=== PATIENT | male | born 1940 | race Caucasian/White ===

== ENCOUNTER 2016-05-22 21:59 | Observation (INO) | payer MEDICARE ==
[~2016-05-22] VITALS: Ht 185.4 cm; Wt 98.0 kg
[2016-05-22 22:05] VITALS: BP 194/85; PULSE 60; RESP 18; TEMP 98; O2SAT 99
[2016-05-22] MEDS ORDERED: ASPI81CH PO (22:13)
[2016-05-22] MEDS ORDERED: METO25TA3 PO (22:13)
[2016-05-22] MEDS ORDERED: LISI-519 PO (22:13)
[2016-05-22] MEDS ORDERED: NITR0.4S SL (22:13)
[2016-05-22] MEDS ORDERED: ATOR1TAB18 PO (22:13)
[2016-05-22] MEDS ORDERED: BRIL90TA PO (22:13)
--- NOTE | 2016-05-22 22:32 | PD ---
HPI Chief Complaint: Pain: Acute or Chronic Time Seen by Provider: 22:07 Travel History International Travel<30 days: No Contact w/Intl Traveler<30days: No Traveled to known affect area: No History of Present Illness HPI The patient is a 76 year old male who presents to the [facility] emergency department with a history of multiple systemic complaints that have been escalating over the last 2-3 weeks. The patient reports that over the last month he's had intermittent problems with constipation which is a new concern for him. He reports he did last moved his bowels earlier today in small amount. The patient additionally reports that he's intermittently had weakness in his legs with standing, lightheaded sensation with near syncope today, and a buzzing in his ears associated with right anterior neck pain. The patient reports that he's had a tingling sensation in the left arm, however no chest pressure today. 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 He reports he was diagnosed in the summer with a right bundle branch block and underwent a stress test and echo that was reportedly unremarkable, however in March when he began to have chest pain he was offered a cardiac catheterization. He elected to do it and was noted to have 3 areas of blockage that were significant and 3 stents were placed. He reports that since then he is on a baby aspirin daily, Brilinta. The patient reports having intermittent nausea without vomiting. The patient denies having any diarrhea. He denies having any abdominal pain other than the sensation of intermittent bloating related to his constipation. The patient reports having some night. The patient denies any recent fevers, cough, congestion, chest pain , shortness of breath, urinary symptoms, or neurologic symptoms. [facility] Past Medical History Narrative Medical The patient's past medical history is significant for tinnitus that he reports having for many years, history of hyperlipidemia, hypertension, arthritis, coronary artery disease status post 3 prior stents being placed, pulmonary embolism after hip replacement. The patient is visiting from [place]. High Cholesterol: Yes Hypertension: Yes Respiratory: Yes (PE) Tetanus Vaccination: > 5 Years Influenza Vaccination: Yes Past Surgical History Narrative Surgical The patient's past surgical history is significant for a hip replacement, cardiac catheterization with 3 stents placed in March 2016. Cardiac Surgery: Yes (STENTS X3) Social History Alcohol Use: Yes (DAILY) Tobacco Use: Yes Substance Use: No Allergies-Medications (Allergen,Severity, Reaction): Coded Allergies: No Known Allergies (Unverified , 05/22/16) Reported Meds & Prescriptions Reported Meds & Active Scripts Active Reported Brilinta (Ticagrelor) 90 Mg Tab 90 Mg PO BID Nitrostat SL (Nitroglycerin) 0.4 Mg Subl 0.4 Mg SL DIRECTED PRN 1 tablet under the tongue as needed for chest pain. Repeat every 5 minutes for a total of 3 DOSES or call 911 if NO relief. Metoprolol Tartrate 25 Mg Tab 25 Mg PO BID Lisinopril 5 Mg Tab 5 Mg PO DAILY Atorvastatin (Atorvastatin Calcium) 80 Mg Tab 80 Mg PO HS Aspirin 81 Mg Chew 81 Mg PO DAILY Review of Systems Except as stated in HPI: all other systems reviewed are Neg General / Constitutional: No: Fever Eyes: No: Visual changes HENT: Positive: Headaches, Lightheadedness, No: Rhinorrhea, Congestion, Neck Pain Cardiovascular: No: Chest Pain or Discomfort Respiratory: No: Cough, Shortness of Breath Gastrointestinal: Positive: Nausea, Constipation, Changes in Bowel Habits, No : Vomiting, Diarrhea, Abdominal Pain, Indigestion, Dysphagia, Loss of Appetite Genitourinary: No: Urgency, Frequency, Dysuria, Flank Pain Musculoskeletal: Positive: Myalgias, Arthralgias, No: Pain Skin: No Rash Neurologic: No: Weakness, Focal Abnormalities, Coordination Problem, Change in Mentation, Slurred Speech, Sensory Disturbance Psychiatric: No: Depression Endocrine: No: Polydipsia Hematologic/Lymphatic: No: Easy Bruising Physical Exam Narrative General: The patient is a well-developed well-nourished male. Head and Neck exam: Head is normocephalic atraumatic. Eyes: Pupils are equal round and reactive to light. Nose: Midline septum with pink mucous membranes Mouth: Dentition unremarkable. Moist mucus membranes. Posterior oropharynx is not erythematous. No tonsillar hypertrophy. Uvula midline. Airway patent. Neck: No palpable lymphadenopathy. No nuchal rigidity. No thyromegaly. Cardiovascular: Regular rate and rhythm without murmurs, gallops, or rubs. Lungs: Clear to auscultation bilaterally. No wheezes, rhonchi, or rales. Abdomen: Soft, without tenderness to palpation in all 4 quadrants of the abdomen. No guarding, rebound, or rigidity. Normal bowel sounds are audible. Extremities: No clubbing, cyanosis, or edema. 2+ pulses in all 4 extremities. No calf tenderness on palpation. Negative Homans sign, no palpable cords. Back: No spinous process tenderness to palpation. No costovertebral angle tenderness to palpation. Neurologic Exam: Grossly nonfocal. Skin Exam: No rash noted. Intact skin that is warm and dry. Data Data Last Documented VS Vital Signs Date Time Temp Pulse Resp B/P Pulse Ox O2 Delivery O2 Flow Rate FiO2 05/22/16 23:00 70 16 148/70 97 Room Air 05/22/16 22:[address] Cerv Spine W/O Contrast (05/22/16 22:10) Electrocardiogram (05/22/16 22:10) Complete Blood Count With Diff (05/22/16 22:10) Comprehensive Metabolic Panel (05/22/16 22:10) Creatine Kinase (Cpk) (05/22/16 22:10) Ckmb (Isoenzyme) Profile (05/22/16 22:10) Troponin I (05/22/16 22:10) B-Type Natriuretic Peptide (05/22/16 22:10) Lipase (05/22/16 22:10) Westergren Sedimentation Rate (05/22/16 22:10) Magnesium (Mg) (05/22/16 22:10) Chest, Single Ap (05/22/16 22:10) Iv Access Insert/Monitor (05/22/16 22:10) Ecg Monitoring (05/22/16 22:10) Oximetry (05/22/16 22:10) D-Dimer (05/22/16 22:25) Ct Brain W/O Iv Contrast(Rout) (05/22/16 22:25) CKMB (05/22/16 22:20) CKMB% (05/22/16 22:20) Ct Pulmonary Angiogram (05/22/16 23:32) Aspirin Chew (Aspirin Chew) (05/22/16 23:45) Nitroglycerin 2% Oint (Nitroglycerin 2% (05/22/16 23:45) Admit Order (Ed Use Only) (05/23/16 00:32) Labs Laboratory Tests Test 05/22/16 22:20 White Blood Count 5.6 TH/MM3 Red Blood Count 4.38 MIL/MM3 Hemoglobin 13.0 GM/DL Hematocrit 38.2 % Mean Corpuscular Volume 87.2 FL Mean Corpuscular Hemoglobin 29.7 PG Mean Corpuscular Hemoglobin 34.1 % Concent Red Cell Distribution Width 15.1 % Platelet Count 208 TH/MM3 Mean Platelet Volume 7.7 FL Neutrophils (%) (Auto) 61.8 % Lymphocytes (%) (Auto) 23.8 % Monocytes (%) (Auto) 12.0 % Eosinophils (%) (Auto) 1.9 % Basophils (%) (Auto) 0.5 % Neutrophils # (Auto) 3.4 TH/MM3 Lymphocytes # (Auto) 1.3 TH/MM3 Monocytes # (Auto) 0.7 TH/MM3 Eosinophils # (Auto) 0.1 TH/MM3 Basophils # (Auto) 0.0 TH/MM3 CBC Comment DIFF FINAL Differential Comment Erythrocyte Sedimentation Rate 2 mm/hr D-Dimer Quantitative (PE/DVT) 0.80 MG/L FEU Sodium Level 143 MEQ/L Potassium Level 4.5 MEQ/L Chloride Level 109 MEQ/L Carbon Dioxide Level 27.8 MEQ/L Anion Gap 6 MEQ/L Blood Urea Nitrogen 17 MG/DL Creatinine 0.87 MG/DL Estimat Glomerular Filtration 86 ML/MIN Rate Random Glucose 87 MG/DL Calcium Level 9.1 MG/DL Magnesium Level 2.1 MG/DL Total Bilirubin 0.5 MG/DL Aspartate Amino Transf 37 U/L (AST/SGOT) Alanine Aminotransferase 33 U/L (ALT/SGPT) Alkaline Phosphatase 76 U/L Total Creatine Kinase 228 U/L Creatine Kinase MB 3.3 NG/ML Troponin I LESS THAN 0.02 NG/ML B-Type Natriuretic Peptide 57 PG/ML Total Protein 6.6 GM/DL Albumin 3.9 GM/DL Lipase 116 U/L MDM Medical Decision Making Medical Screen Exam Complete: Yes Emergency Medical Condition: Yes Medical Record Reviewed: Yes Interpretation(s) Last Impressions Head CT 05/22/[id number] Signed Impressions: Service Date/Time: Sunday, May 22, 2016 22:43 - CONCLUSION: Normal examination for a patient of this age. Isaías Lombardo MD Chest X-Ray [id number] Signed Impressions: Service Date/Time: Sunday, May 22, 2016 22:29 - CONCLUSION: No acute disease. Mikey Reyes MD Cervical Spine CT 05/22/16 [id number] Signed Impressions: Service Date/Time: Sunday, May 22, 2016 22:43 - CONCLUSION: 1. No acute findings. Moderate to severe degenerative disc disease and facet arthropathy. Moderate to severe bilateral neural foraminal stenosis at C3-4-5-6-7, worse on the left side. Isaías Lombardo MD Differential Diagnosis Acute coronary syndrome, versus pulmonary embolism, versus cardiac arrhythmia, versus vasovagal nearsyncope, versus medication side effect, versus orthostasis , versus cervical radiculopathy, versus intracranial abnormality Narrative Course During the course of the patients emergency department visit, the patients history, examination, and differential diagnosis were reviewed with the patient. The patient had IV access obtained and blood work sent for analysis. The patient was placed on a compliance monitor with oximetry and blood pressure monitoring. An EKG was done on arrival. The patient's EKG reveals a sinus rhythm borderline first-degree AV block, right bundle branch block is noted, no acute ST segment elevation is noted. T waves are inverted in V1, V2. The patient was provided aspirin 162 mg by mouth 1. Nitroglycerin 1 inch the chest wall The patients laboratory studies were reviewed and remarkable for a CBC that was unremarkable except for a monocytosis, CMP that was unremarkable, initial set of cardiac enzymes are negative. Sedimentation rate was within normal limits. D-dimer was elevated at 0.8, therefore CTA to rule out PE was ordered. Radiology studies were reviewed and remarkable for a CT scan of the head that showed no acute abnormality. CT scan of the cervical spine showed degenerative changes and areas of neural foraminal narrowing which could be contributing to a cervical radiculopathy, CTA to rule out PE was negative for pulmonary embolism , erythematous changes were noted, chest x-ray showed no acute abnormality. The most concerning features of the patient's recent systemic complaints are the fact that they could be related to an acute coronary process given his recent history of having 3 stents placed, therefore the patient will be admitted to the hospital for evaluation and treatment, rule out serial cardiac enzyme protocol. The patients results were discussed with the patient, including the plan of care. I explained that further testing and/ or monitoring is indicated based on the patients history, examination, and/ or laboratory findings. Therefore, I recommended admission for additional evaluation. The patient expressed understanding and was agreeable with this plan. The patient was admitted to the hospital in stable condition and sent to a bed under the care of the chest pain center for rule out serial cardiac enzyme protocol. Diagnosis Primary Impression: Chest pain, rule out acute myocardial infarction Additional Impressions: Hx of coronary artery disease Near syncope Admitting Information Admitting Physician Requests: Observation Paloma Eaton MD May 22, 2016 22:32
--- NOTE | 2016-05-22 22:37 | RADRPT ---
EXAM DATE/TIME: 05/22/2016 22:29 [facility] COMPARISON: No previous studies available for comparison. INDICATIONS : Chest pain MEDICAL HISTORY : None. SURGICAL HISTORY : Cardiac stents ENCOUNTER: Initial ACUITY: 2 weeks PAIN SCORE: 0/10 LOCATION: Bilateral chest FINDINGS: A single view of the chest demonstrates the lungs to be symmetrically aerated without evidence of mas s, infiltrate or effusion. The cardiomediastinal contours are unremarkable. Osseous structures are intact. CONCLUSION: No acute disease. Mikey Reyes MD on May 22, 2016 at 22:35 Board Certified Radiologist. This report was verified electronically.
[2016-05-22 23:00] VITALS: BP 148/70; PULSE 70; RESP 16; O2SAT 97
[2016-05-22 23:01] LABS: ALKALINE PHOSPHATASE 76 U/L (45-117); ALT (GPT) 33 U/L (12-78); ANION GAP 6 MEQ/L (5-15); AST (GOT) 37 U/L (15-37); BICARBONATE 27.8 MEQ/L (21.0-32.0); BLOOD UREA NITROGEN 17 MG/DL (7-18); CHLORIDE 109 MEQ/L (98-107); CREATINE KINASE 228 U/L (39-308); GLOMERULAR FILTRATION RATE 86 ML/MIN (>89); MAGNESIUM 2.1 MG/DL (1.5-2.5); SODIUM (NA) 143 MEQ/L (136-145); TOTAL BILIRUBIN ADULT 0.5 MG/DL (0.2-1.0)
[2016-05-22 23:02] LABS: POTASSIUM 4.5 MEQ/L (3.5-5.1)
--- NOTE | 2016-05-22 23:07 | RADRPT ---
EXAM DATE/TIME: 05/22/2016 22:43 [place] Corrected on: May 27, 2016; added missing exam form information [facility] COMPARISON: No previous studies available for comparison. INDICATIONS : Cephalgia. RADIATION DOSE: 56.35 CTDIvol (mGy) MEDICAL HISTORY : Cardiovascular disease. Hypertension. PE SURGICAL HISTORY : left hip replacement. ENCOUNTER: Initial ACUITY: 1 day PAIN SCALE: 6/10 LOCATION: cranial TECHNIQUE: Multiple contiguous axial images were obtained of the head. Using automated exposure control and adj ustment of the mA and/or kV according to patient size, radiation dose was kept as low as reasonably a chievable to obtain optimal diagnostic quality images. FINDINGS: CEREBRUM: The ventricles are normal for age. No evidence of midline shift, mass lesion, hemorrhage or acute in farction. No extra-axial fluid collections are seen. POSTERIOR FOSSA: The cerebellum and brainstem are intact. The 4th ventricle is midline. The cerebellopontine angle i s unremarkable. EXTRACRANIAL: The visualized portion of the orbits is intact. SKULL: The calvaria is intact. No evidence of skull fracture. CONCLUSION: Normal examination for a patient of this age. Isaías Lombardo MD on May 22, 2016 at 22:59 Board Certified Radiologist. This report was verified electronically. DR Grill Prep Cook on May 27, 2016 at 8:51 Board Certified Radiologist. This report was verified electronically.
--- NOTE | 2016-05-22 23:12 | RADRPT ---
EXAM DATE/TIME: 05/22/2016 22:43 [facility] COMPARISON: No previous studies available for comparison. INDICATIONS : Neck pain; possible radiculopathy. RADIATION DOSE: 35.08 CTDIvol (mGy) MEDICAL HISTORY : Cardiovascular disease. Hypertension. PE SURGICAL HISTORY : Left hip replacement ENCOUNTER: Initial ACUITY: 1 day PAIN SCALE: 6/10 LOCATION: neck TECHNIQUE: Volumetric scanning of the cervical spine was performed. Multiplanar reconstructions in the sagittal, coronal and oblique axial planes were performed. Using automated exposure control and adjustment o f the mA and/or kV according to patient size, radiation dose was kept as low as reasonably achievable to obtain optimal diagnostic quality images. FINDINGS: No acute fracture or spondylolisthesis. Moderate to severe degenerative disc disease in lower cervica l spine with mild AP canal stenosis at C5-6-7. Multilevel neural foraminal encroachment. No preverteb ral soft tissue swelling. CONCLUSION: 1. No acute findings. Moderate to severe degenerative disc disease and facet arthropathy. Moderate to severe bilateral neural foraminal stenosis at C3-4-5-6-7, worse on the left side. Isaías Lombardo MD on May 22, 2016 at 23:06 Board Certified Radiologist. This report was verified electronically.
[2016-05-22 23:14] LABS: CKMB 3.3 NG/ML (0.5-3.6)
[2016-05-22 23:43] LABS: AUTOMATED NEUTROPHIL # 3.4 TH/MM3 (1.8-7.7); BASOPHIL % 0.5 % (0.0-2.0); EOSINOPHIL # 0.1 TH/MM3 (0-0.4); EOSINOPHIL % 1.9 % (0.0-4.0); HEMATOCRIT 38.2 % (39.0-51.0); HEMO FLAGS DIFF FINAL; LYMPH % 23.8 % (9.0-44.0); LYMPHOCYTE # 1.3 TH/MM3 (1.0-4.8); MEAN CELL VOLUME 87.2 FL (80.0-100.0); MEAN CORPUSCULAR HEMOGLOBIN 29.7 PG (27.0-34.0); MEAN CORPUSCULAR HGB CONC 34.1 % (32.0-36.0); NEUT % 61.8 % (16.0-70.0); PLATELET COUNT 208 TH/MM3 (150-450); RED BLOOD COUNT 4.38 MIL/MM3 (4.50-5.90); RED CELL DISTRIBUTION WIDTH 15.1 % (11.6-17.2); WHITE BLOOD COUNT 5.6 TH/MM3 (4.0-11.0)
[2016-05-22] MEDS ORDERED: ASPIRIN 81 MG CHEW TAB CHEW ONE (23:45)
[2016-05-22] MEDS ORDERED: NITROGLYCERIN 2% OINT 1 GM PACKET TOPICAL ONE (23:45)
[2016-05-23] VITALS (8 sets, daily range): BP systolic 120–185; BP diastolic 59–89; PULSE 56–87; RESP 18; TEMP 98.8; O2SAT 96–99
[2016-05-23] MEDS ORDERED: IOHEXOL 350 MG/ML 10 ML VIAL (for RAD DIAG) IV ONE (00:42)
--- NOTE | 2016-05-23 01:14 | RADRPT ---
EXAM DATE/TIME: 05/23/2016 00:39 [facility] COMPARISON: No previous studies available for comparison. INDICATIONS : Shortness of breath; rule out pulmonary embolus. IV CONTRAST: 80 cc Omnipaque 350 (iohexol) IV RADIATION DOSE: 23.44 CTDIvol (mGy) MEDICAL HISTORY : Hypertension. SURGICAL HISTORY : Cardiac stents. ENCOUNTER: Initial ACUITY: 1 day PAIN SCALE: 2/10 LOCATION: chest TECHNIQUE: Volumetric scanning of the chest was performed using a pulmonary embolism protocol MIP images were re constructed. Using automated exposure control and adjustment of the mA and/or kV according to patien t size, radiation dose was kept as low as reasonably achievable to obtain optimal diagnostic quality images. FINDINGS: No filling defects are seen to suggest pulmonary embolic disease. There are coronary calcifications a nd a stent in the LAD. No pleural or pericardial effusion. No focal lung consolidation. Minimal dependent atelectasis in the lungs. Mild emphysema. CONCLUSION: 1. Negative for pulmonary embolus. 2. Moderate coronary calcifications status post stent placement within the LAD. 3. Mild emphysema. Isaías Lombardo MD on May 23, 2016 at 1:07 Board Certified Radiologist. This report was verified electronically.
[2016-05-23] MEDS ORDERED: SODIUM CHLORIDE 0.9% FLUSH 5 ML FLUSH IVF PRN (01:45)
[2016-05-23] MEDS ORDERED: ACETAMINOPHEN/HYDROcodone 325 MG/7.5 MG TAB PO PRN (01:45)
[2016-05-23] MEDS ORDERED: ONDANSETRON HCL 4 MG/2 ML VIAL IV PRN (01:45)
[2016-05-23 02:44] LABS: CREATINE KINASE 163 U/L (39-308)
[2016-05-23 05:10] LABS: CREATINE KINASE 139 U/L (39-308)
[2016-05-23 05:22] LABS: CKMB 2.5 NG/ML (0.5-3.6)
--- NOTE | 2016-05-23 07:56 | HHI.DCPOC ---
Discharge Care Plan Diagnosis: (1) Cervical radiculopathy (2) Hypertension (3) Hyperlipidemia (4) Hx of coronary artery disease (5) H/O heart artery stent Goals to Promote Your Health OVER THE COUNTER METAMUCIL. 325MG ASPIRIN 2-3 DAYS A DAY FOE NECK PAIN, DISCUSS TAKING MOBIC WITH YOUR NUCLEAR FUEL ENRICHMENT TECHNICIAN. * To prevent worsening of your condition and complications * To maintain your health at the optimal level Directions to Meet Your Goals Take your medications as prescribed Follow your dietary instruction Follow activity as directed Keep your appointments as scheduled Take your immunizations and boosters as scheduled If your symptoms worsen call your PCP, if no PCP go to Urgent Care Center or Emergency Room Smoking is Dangerous to Your Health. Avoid second hand smoke Call the 24-hour hour crisis hotline for domestic abuse at [facility] May 23, 2016 07:56
--- NOTE | 2016-05-23 08:14 | HHI.HP ---
HPI Primary Care Physician Non-Staff Chief Complaint Neck and arm pain History of Present Illness This is a 76-year-old male with history of CAD status post stenting in February 2016, hypertension, and hyperlipidemia that presents complaining of chronic neck pain however over last 3 weeks he has had neck pain with a burning discomfort radiating down his arms more so on the left side. The discomfort in his arm has been essentially constant for the last 2 weeks. He's not really nothing to worsen the discomfort in his arm but states the neck discomfort is worsened with movement. He also complains of discomfort along both sides of his neck. Denies chest discomfort. 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 Denies shortness breath, nausea, or diaphoresis. Patient had 3 stents in February. States had a normal stress test and 2-D echo in the summer of last year. These were done in [place]. He is here in [place] for one month. Review of Systems General: Patient denies fevers, chills recent, and recent travel HEENT: Patient denies headache, sore throat, difficulty swallowing. Cardiovascular: Has the chest discomfort as mentioned above. Denies sensation of heart beating rapidly or irregularly. No syncope. Respiratory: Denies shortness of breath or inspirational chest discomfort. Denies coughing wheezing or hemoptysis. GI: Patient denies nausea, vomiting, diarrhea, abdominal pain, bloody stools. Musculoskeletal: Patient remains of neck and arm pain. Denies calf pain or edema. Neurovascular: Patient denies numbness, tingling, weakness in extremities. Denies headache. Complains of burning discomfort radiating down both arms. Endocrine: Denies polyuria and polydipsia. Hematologic: Denies easy bruising. Skin: Denies rash or itching. Past Family Social History Allergies: Coded Allergies: No Known Allergies (Unverified , 05/22/16) Past Medical History CAD with 3 stents February 2016. Hypertension, hyperlipidemia, chronic neck pain which he states is from arthritis. Tinnitus. Past Surgical History Cardiac catheterization with 3 stents February 2016. Reported Medications Reported Meds & Active Scripts Active Reported Brilinta (Ticagrelor) 90 Mg Tab 90 Mg PO BID Nitrostat SL (Nitroglycerin) 0.4 Mg Subl 0.4 Mg SL DIRECTED PRN 1 tablet under the tongue as needed for chest pain. Repeat every 5 minutes for a total of 3 DOSES or call 911 if NO relief. Metoprolol Tartrate 25 Mg Tab 25 Mg PO BID Lisinopril 5 Mg Tab 5 Mg PO DAILY Atorvastatin (Atorvastatin Calcium) 80 Mg Tab 80 Mg PO HS Aspirin 81 Mg Chew 81 Mg PO DAILY Active Ordered Medications Current Medications Medications (Trade) Dose Ordered Sig/Chago Route Start Time Stop Time Status Last Admin (NS Flush) 2 ml UNSCH PRN IVF 05/23/16 01:45 (NS Flush) 2 ml BID IVF 05/23/16 09:00 ([place] 7.5-325 Mg) 1 tab Q4H PRN PO 05/23/16 01:45 (Zofran Inj) 4 mg Q6H PRN IV 05/23/16 01:45 (Protonix) 40 mg DAILY PO 05/23/16 09:00 (Aspirin Chew) 81 mg DAILY PO 05/23/16 09:00 UNV (Lipitor) 80 mg HS PO 05/23/16 21:00 UNV (Prinivil) 5 mg DAILY PO 05/23/16 09:00 UNV (Lopressor) 25 mg BID PO 05/23/16 09:00 UNV (Brilinta) 90 mg BID PO 05/23/16 09:00 UNV Family History Denies family history of CAD. Social History Patient has an occasional cigar. Denies illicit drug use. He has on average 2 vodka and tonics per day. Physical Exam Vital Signs Vital Signs Date Time Temp Pulse Resp B/P Pulse Ox O2 Delivery O2 Flow Rate FiO2 05/23/16 05:59 56 05/23/16 04:13 98.8 65 18 120/59 98 05/23/16 02:36 98.8 87 18 167/87 98 05/23/16 02:15 60 05/23/16 02:15 60 05/23/16 01:52 99 21 05/23/16 01:49 61 185/85 65 160/83 68 174/89 05/22/16 23:00 70 16 148/70 97 Room Air 05/22/16 22:05 98.0 60 18 194/85 99 Physical Exam GENERAL: This is a well-nourished, well-developed patient, in no apparent distress. Patient speaks in clear complete sentences. Patient is pleasant. HEENT: Head is atraumatic and normocephalic. Neck is supple without lymphadenopathy and trachea is midline. No JVD or carotid bruits. CARDIOVASCULAR: Regular rate and rhythm without murmurs, gallops, or rubs. RESPIRATORY: Clear to auscultation. Breath sounds equal bilaterally. No wheezes , rales, or rhonchi. Chest wall is nontender. No use of accessory muscles. GASTROINTESTINAL: Abdomen is nontender, nondistended. Abdomen soft. No obvious pulsatile mass or bruit. No CVA tenderness. Strong femoral pulses bilaterally. Normal bowel sounds in all quadrants. MUSCULOSKELETAL: There is some discomfort with flexion-extension and rotation of the cervical spine. No spinous process point tenderness in palpating cervical, thoracic, or lumbar spine. Patient is moving upper and lower extremities freely. No calf tenderness or edema, no Homans sign. Strong pulses in upper and lower extremities. NEUROLOGICAL: Patient is alert and oriented. Cranial nerves 2-12 are grossly intact. No focal deficits and speech is clear. Strong head of research & insights strength bilaterally. SKIN: No rash and turgor is normal. Laboratory Laboratory Tests Test 05/22/16 05/23/16 05/23/16 22:20 01:50 04:25 White Blood Count 5.6 Red Blood Count 4.38 Hemoglobin 13.0 Hematocrit 38.2 Mean Corpuscular Volume 87.2 Mean Corpuscular Hemoglobin 29.7 Mean Corpuscular Hemoglobin 34.1 Concent Red Cell Distribution Width 15.1 Platelet Count 208 Mean Platelet Volume 7.7 Neutrophils (%) (Auto) 61.8 Lymphocytes (%) (Auto) 23.8 Monocytes (%) (Auto) 12.0 Eosinophils (%) (Auto) 1.9 Basophils (%) (Auto) 0.5 Neutrophils # (Auto) 3.4 Lymphocytes # (Auto) 1.3 Monocytes # (Auto) 0.7 Eosinophils # (Auto) 0.1 Basophils # (Auto) 0.0 CBC Comment DIFF FINAL Differential Comment Erythrocyte Sedimentation Rate 2 D-Dimer Quantitative (PE/DVT) 0.80 Sodium Level 143 Potassium Level 4.5 Chloride Level 109 Carbon Dioxide Level 27.8 Anion Gap 6 Blood Urea Nitrogen 17 Creatinine 0.87 Estimat Glomerular Filtration 86 Rate Random Glucose 87 Calcium Level 9.1 Magnesium Level 2.1 Total Bilirubin 0.5 Aspartate Amino Transf 37 (AST/SGOT) Alanine Aminotransferase 33 (ALT/SGPT) Alkaline Phosphatase 76 Total Creatine Kinase 228 163 139 Creatine Kinase MB 3.3 3.0 2.5 Troponin I LESS THAN 0.02 LESS THAN 0.02 LESS THAN 0.02 B-Type Natriuretic Peptide 57 Total Protein 6.6 Albumin 3.9 Lipase 116 Result Diagram: 05/22/16221905/22/162219 Imaging Last [address] Angiography 05/22/162331 Signed Impressions: Service Date/Time: Monday, May 23, 2016 00:39 - CONCLUSION: 1. Negative for pulmonary embolus. 2. Moderate coronary calcifications status post stent placement within the LAD. 3. Mild emphysema. Isaías Lombardo MD Head CT 05/22/[id number] Signed Impressions: Service Date/Time: Sunday, May 22, 2016 22:43 - CONCLUSION: Normal examination for a patient of this age. Isaías Lombardo MD Chest X-Ray 05/22/162209 Signed Impressions: Service Date/Time: Sunday, May 22, 2016 22:29 - CONCLUSION: No acute disease. Mikey Reyes MD Cervical Spine CT 05/22/162209 Signed Impressions: Service Date/Time: Sunday, May 22, 2016 22:43 - CONCLUSION: 1. No acute findings. Moderate to severe degenerative disc disease and facet arthropathy. Moderate to severe bilateral neural foraminal stenosis at C3-4-5-6-7, worse on the left side. Isaías Lombardo MD Course EKGs have sinus rhythm with right bundle branch block. No significant ST segment depressions or elevations. Assessment and Plan Assessment and Plan * Cervical radiculopathy: Patient's symptoms appear to be a radicular pain. CT of the C-spine reveals foraminal stenosis worse on left than the right. He will need to follow-up with his physician for this. He'll be given copies of his images to take back home. * CAD: Patient has history of CAD. He has normal troponins 3. His symptoms do not appear cardiac. He was seen by Dr. Mehdi Grissom of cardiology and the chest pain center. * Hypertension: Continue current medication. * Hyperlipidemia: Continue current medication. Patient is stable at this time. He is agreeable to this plan. Andrew Bush May 23, 2016 08:14
[2016-05-23] MEDS ORDERED: ASPIRIN 81 MG CHEW TAB PO SCH (09:00)
[2016-05-23] MEDS ORDERED: LISINOPRIL 5 MG TAB PO SCH (09:00)
[2016-05-23] MEDS ORDERED: SODIUM CHLORIDE 0.9% FLUSH 5 ML FLUSH IVF SCH (09:00)
[2016-05-23] MEDS ORDERED: METOPROLOL TARTRATE 25 MG TAB PO SCH (09:00)
[2016-05-23] MEDS ORDERED: PANTOPRAZOLE SOD 40 MG DELAYED RELEASE TAB PO SCH (09:00)
[2016-05-23] MEDS ORDERED: TICAGRELOR 90 MG TAB PO SCH (09:00)
[2016-05-23] MEDS ORDERED: ATORVASTATIN 80 MG TAB PO SCH (21:00)
--- NOTE | 2016-05-24 07:37 | EKG ---
Date Performed: 05/22/2016 Time Performed: 22:10:41 PTAGE: 76 years EKG: Thalia Sinus rhythm RIGHT BUNDLE BRANCH BLOCK INFERIOR MYOCARDIAL INFARCTION ABNORMAL ECG Since previous tracing, no sig nificant change noted NO PREVIOUS TRACING DOCTOR: Annemarie Garcia Interpretating Date/Time 05/24/2016 07:37:02
--- NOTE | 2016-05-24 07:37 | EKG ---
Date Performed: 05/23/2016 Time Performed: 02:03:03 PTAGE: 76 years EKG: Sinus rhythm WITH FIRST DEGREE AV BLOCK WITH OCCASIONAL VENTRICULAR PREMATURE COMPLEXES RIGHT BUNDLE BRANCH BLOCK ABNORMAL ECG Since PREVIOUS TRACING , no significant change noted PREVIOUS TRACIN05/22/2016 22.10 DOCTOR: Annemarie Garcia Interpretating Date/Time 05/24/2016 07:37:30
--- NOTE | 2016-05-24 07:39 | EKG ---
Date Performed: 05/23/2016 Time Performed: 04:34:53 PTAGE: 76 years EKG: Sinus rhythm RIGHT BUNDLE BRANCH BLOCK LEFT ANTERIOR FASCICULAR BLOCK POSSIBLE SEPTAL MYOCARDIAL INFARCTION ABNOR MAL ECG Since PREVIOUS TRACING , no significant change noted PREVIOUS TRACIN05/23/2016 02.03 DOCTOR: Annemarie Garcia Interpretating Date/Time 05/24/2016 07:39:31
== END 2016-05-23 09:53 | disposition home or self-care (01) ==
LOC: NEPE 21:59 → NEDA 05-23 00:34 → NEPGCP 05-23 02:17
DX: M54.12 Radiculopathy, cervical region (principal); M48.02 Spinal stenosis, cervical region; I25.10 Atherosclerotic heart disease of native coronary artery without angina pectoris; I10 Essential (primary) hypertension; M54.2 Cervicalgia; G89.29 Other chronic pain; E78.5 Hyperlipidemia, unspecified; I44.0 Atrioventricular block, first degree; E78.00 Pure hypercholesterolemia, unspecified; J43.9 Emphysema, unspecified; K59.00 Constipation, unspecified; M46.90 Unspecified inflammatory spondylopathy, site unspecified; Z72.0 Tobacco use; Z86.711 Personal history of pulmonary embolism; Z95.5 Presence of coronary angioplasty implant and graft; Z96.642 Presence of left artificial hip joint
CPT/HCPCS: 70450; 71010; 71275; 72125; 80053; 82550; 82552; 83690; 83735; 83880; 84484; 85025; 85379; 85652; 93005; 99285; G0378; Q9967